=== PATIENT | female | born 2000 | race Caucasian/White ===

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

== ENCOUNTER 2022-02-12 17:04 | Emergency (ER) | payer MEDICAID, OTHER ==
[~2022-02-12] VITALS: Ht 167.6 cm; Wt 118.0 kg
[2022-02-12] MEDS ORDERED: IBUPROFEN 600MG TABLET PO ONE (18:00)
[2022-02-12 18:45] LABS: CLARITY URINE CLOUDY (CLEAR); COLOR URINE DARK YELLOW (YELLOW); KETONES URINE TRACE (NEGATIVE); LEUKOCYTE ESTERASE URINE TRACE (NEGATIVE); NITRITE URINE NEGATIVE (NEGATIVE); OCCULT BLOOD URINE NEGATIVE (NEGATIVE); PH URINE 5.5 (4.5-8.0); PROTEIN URINE TRACE (NEGATIVE); SPECIFIC GRAVITY URINE 1.032 (1.005-1.030)
[2022-02-12 18:54] VITALS: BP 149/95
[2022-02-12] MEDS ORDERED: NITR-87 MT (19:18)
[2022-02-12] MEDS ORDERED: DOXY100T2 MT (19:27)
[2022-02-12] MEDS ORDERED: ALBU6.7H9 INH (19:28)
[2022-02-12] MEDS ORDERED: CEFTRIAXONE SODIUM 500 MG/VIAL IM ONE (19:30)
[2022-02-12] MEDS ORDERED: NITROFURANTOIN 100MG M/M CAPSULE PO ONE (19:30)
== END 2022-02-12 19:45 | disposition home or self-care (01) ==
LOC: ER 17:04
DX: R10.30 Lower abdominal pain, unspecified (principal); J45.909 Unspecified asthma, uncomplicated; Z90.49 Acquired absence of other specified parts of digestive tract
CPT/HCPCS: 76830; 76856; 81003; 81025; 96372; 99284; J0696

== ENCOUNTER 2022-05-10 16:58 | Emergency (ER) | payer MEDICAID, OTHER ==
[~2022-05-10] VITALS: Ht 175.3 cm; Wt 105.0 kg
[~2022-05-10 16:58] MED LIST changes: +ALBU6.7H9 INH; +DOXY100T2 MT
[2022-05-10 17:29] VITALS: BP 172/119
[2022-05-11] MEDS ORDERED: CIPHCO RIGHT EAR (11:34)
[2022-05-11] MEDS ORDERED: IBUP-2029 PO (11:34)
[2022-05-11] MEDS ORDERED: AMOX500T2 PO (11:34)
== END 2022-05-10 20:32 | disposition left against medical advice (07) ==
LOC: ER 16:58
DX: Z53.21 Procedure and treatment not carried out due to patient leaving prior to being seen by health care provider (principal); J45.909 Unspecified asthma, uncomplicated; Z98.890 Other specified postprocedural states

== ENCOUNTER 2022-05-11 09:48 | Emergency (ER) | payer MEDICAID, OTHER ==
[~2022-05-11] VITALS: Ht 167.6 cm; Wt 105.0 kg
[2022-05-11 09:50] VITALS: BP 133/80
[2022-05-11] MEDS ORDERED: IBUPROFEN 600MG TABLET PO STA (11:10)
[2022-05-11] MEDS ORDERED: IBUP-2029 PO (11:34)
[2022-05-11] MEDS ORDERED: AMOX500T2 PO (11:34)
[2022-05-11] MEDS ORDERED: CIPHCO RIGHT EAR (11:34)
== END 2022-05-11 11:44 | disposition home or self-care (01) ==
LOC: ER 09:48
DX: H60.91 Unspecified otitis externa, right ear (principal); H66.91 Otitis media, unspecified, right ear
CPT/HCPCS: 81025; 99283

== ENCOUNTER 2022-05-13 11:20 | Emergency (ER) | payer MEDICAID ==
[~2022-05-13] VITALS: Ht 170.2 cm; Wt 118.0 kg
[~2022-05-13 11:20] MED LIST changes: +AMOX500T2 PO; +CIPHCO RIGHT EAR; +IBUP-2029 PO
[2022-05-13 11:32] VITALS: BP 141/93
== END 2022-05-13 16:46 | disposition left against medical advice (07) ==
LOC: ER 11:54
DX: Z53.21 Procedure and treatment not carried out due to patient leaving prior to being seen by health care provider (principal); J45.909 Unspecified asthma, uncomplicated; Z98.890 Other specified postprocedural states

== ENCOUNTER 2022-05-18 07:50 | Emergency (ER) | payer MEDICAID ==
[~2022-05-18] VITALS: Ht 175.3 cm; Wt 118.0 kg
[2022-05-18 08:00] VITALS: BP 155/99
[2022-05-18] MEDS ORDERED: OFLO5DRO4 EACH EAR (08:29)
== END 2022-05-18 08:53 | disposition home or self-care (01) ==
LOC: ER 07:50
DX: H60.92 Unspecified otitis externa, left ear (principal); J45.909 Unspecified asthma, uncomplicated; Z98.890 Other specified postprocedural states
CPT/HCPCS: 99281

== ENCOUNTER 2023-11-14 11:09 | Emergency (ER) | payer MEDICAID ==
[~2023-11-14] VITALS: Ht 172.7 cm; Wt 104.0 kg
[~2023-11-14 11:09] MED LIST changes: +ALBU6.7H3 INH; -ALBU6.7H9 INH; +OFLO5DRO4 EACH EAR
[2023-11-14 11:15] VITALS: O2SAT 97
[2023-11-14] MEDS: ACETAMINOPHEN 325MG TABLET PO ONE (12:43)
[2023-11-14] MEDS: ONDANSETRON 4MG ODT PO ONE (12:43)
[2023-11-14 13:00] LABS: CLARITY URINE CLEAR (CLEAR); COLOR URINE YELLOW (YELLOW); PH URINE 8.5 (4.5-8.0); PROTEIN URINE NEGATIVE (NEGATIVE); SPECIFIC GRAVITY URINE 1.023 (1.005-1.030)
[2023-11-14 13:01] LABS: GLUCOSE URINE NEGATIVE (NEGATIVE); KETONES URINE 1+ (NEGATIVE); LEUKOCYTE ESTERASE URINE NEGATIVE (NEGATIVE); NITRITE URINE NEGATIVE (NEGATIVE); OCCULT BLOOD URINE NEGATIVE (NEGATIVE)
[2023-11-14] MEDS ORDERED: TOPUD MT (15:07)
[2023-11-14] MEDS ORDERED: IBUP-1525 MT (15:07)
[2023-11-14] MEDS ORDERED: AMOX-494 MT (15:07)
[2023-11-14] MEDS ORDERED: DEXT30SU17 MT (15:07)
[2023-11-14 15:21] VITALS: BP 165/85; PULSE 85; RESP 18; TEMP 98.7
== END 2023-11-14 15:34 | disposition home or self-care (01) ==
LOC: ER 11:09
DX: J02.9 Acute pharyngitis, unspecified (principal); J45.909 Unspecified asthma, uncomplicated; Z90.49 Acquired absence of other specified parts of digestive tract; Z79.899 Other long term (current) drug therapy
CPT/HCPCS: 81003; 81025; 99283; Q0162; Z7610

== ENCOUNTER 2024-01-29 10:44 | Emergency (ER) | payer MEDICAID ==
[~2024-01-29] VITALS: Ht 167.6 cm; Wt 118.0 kg
[~2024-01-29 10:44] MED LIST changes: +AMOX-494 MT; +DEXT30SU17 MT; +IBUP-1525 MT; +TOPUD MT
[2024-01-29 11:24] VITALS: BP 122/86; PULSE 66; RESP 18; TEMP 97.8; O2SAT 98
[2024-01-29 12:01] LABS: BASOPHILS % 0.3 % (0.0-2.0); EOSINOPHILS % 2.3 % (0.0-5.0); HEMATOCRIT. 42.6 % (36.0-48.0); HEMOGLOBIN. 14.8 g/dL (12.0-16.0); LYMPHOCYTES % 27.8 % (20.0-50.0); MEAN CORPUSCULAR HEMOGLOBIN 31.9 pg (28.0-32.0); MEAN CORPUSCULAR HGB CONC 34.8 g/dL (31.0-37.0); MEAN CORPUSCULAR VOLUME 91.5 fL (81.0-99.0); MEAN PLATELET VOLUME 11.6 fl (7.4-10.4); MONOCYTES % 7.5 % (2.0-8.0); NEUTROPHILS % 62.1 % (40.0-76.0); PLATELET 249 x1000/uL (130-400); RED BLOOD CELL COUNT 4.65 mill/uL (4.2-5.4); RED CELL DISTRIBUTION WIDTH 12.7 % (11.6-14.6); WHITE BLOOD COUNT 9.4 x1000/uL (4.5-11.0)
[2024-01-29 12:11] LABS: HCG SCREEN NEGATIVE
== END 2024-01-29 13:40 | disposition left against medical advice (07) ==
LOC: ER 10:44
DX: N93.8 Other specified abnormal uterine and vaginal bleeding (principal); J45.909 Unspecified asthma, uncomplicated; Z90.49 Acquired absence of other specified parts of digestive tract
CPT/HCPCS: 36415; 84703; 85025; 86850; 86900; 99283

== ENCOUNTER → 2024-05-22 | Emergency (ER) | payer MEDICAID, OTHER ==
[~2024-05-22] VITALS: Ht 170.2 cm; Wt 126.0 kg
[2024-05-22 16:04] VITALS: BP 125/71; PULSE 71; RESP 16; O2SAT 99
[2024-05-22 17:40] LABS: BASOPHILS % 0.5 % (0.0-2.0); EOSINOPHILS % 3.4 % (0.0-5.0); HEMATOCRIT. 43.2 % (36.0-48.0); HEMOGLOBIN. 14.4 g/dL (12.0-16.0); LYMPHOCYTES % 28.4 % (20.0-50.0); MEAN CORPUSCULAR HEMOGLOBIN 30.8 pg (28.0-32.0); MEAN CORPUSCULAR HGB CONC 33.3 g/dL (31.0-37.0); MEAN CORPUSCULAR VOLUME 92.6 fL (81.0-99.0); MEAN PLATELET VOLUME 10.6 fl (7.4-10.4); MONOCYTES % 7.2 % (2.0-8.0); NEUTROPHILS % 60.5 % (40.0-76.0); PLATELET 259 x1000/uL (130-400); RED BLOOD CELL COUNT 4.67 mill/uL (4.2-5.4); RED CELL DISTRIBUTION WIDTH 12.8 % (11.6-14.6); WHITE BLOOD COUNT 10.7 x1000/uL (4.5-11.0)
[2024-05-22 17:45] LABS: CHLORIDE 106 mEq/L (98-107); POTASSIUM 3.8 mEq/L (3.5-5.1); SODIUM 139 mEq/L (136-145)
[2024-05-22 17:46] LABS: CARBON DIOXIDE 26 mEq/L (21-32)
[2024-05-22 17:47] LABS: CALCIUM 9.6 mg/dL (8.7-10.4)
[2024-05-22 17:51] LABS: CREATININE 0.7 mg/dL (0.6-1.0); GLUCOSE 88 mg/dL (70-105)
[2024-05-22 17:52] LABS: UREA NITROGEN BLOOD 11 mg/dL (9-23)
[2024-05-22 18:00] LABS: HCG SCREEN NEGATIVE
[2024-05-22 18:07] LABS: TROPONIN I HIGH SENSITIVITY < 4 ng/L (3.0-34)
== END ==
LOC: ER 15:59
DX: R07.89 Other chest pain (principal); J45.909 Unspecified asthma, uncomplicated; Z79.899 Other long term (current) drug therapy
CPT/HCPCS: 36415; 71045; 80048; 84484; 84703; 85025; 93005; 99285

== ENCOUNTER 2024-07-24 14:49 | Emergency (ER) | payer MEDICAID ==
[~2024-07-24] VITALS: Ht 170.2 cm; Wt 109.0 kg
[2024-07-24 14:59] VITALS: BP 117/71; RESP 18; O2SAT 97
[2024-07-24 15:01] VITALS: PULSE 95; O2SAT 97
[2024-07-24 15:28] VITALS: TEMP 98.2
[2024-07-24] MEDS: ACETAMINOPHEN 325MG TABLET PO ONE (15:28)
[2024-07-24] MEDS: BACITRACIN ZINC OINT UDPKT TOP ONE (16:00)
[2024-07-24] MEDS: LIDOCAINE HCL/PF 1% 10 MG/ML 5ML VIAL INFIL ONE (16:01)
== END 2024-07-24 17:24 | disposition home or self-care (01) ==
LOC: ER 15:00
DX: S61.211A Laceration without foreign body of left index finger without damage to nail, initial encounter (principal); J45.909 Unspecified asthma, uncomplicated; Z79.899 Other long term (current) drug therapy; Z90.49 Acquired absence of other specified parts of digestive tract; W26.0XXA Contact with knife, initial encounter; Y93.89 Activity, other specified; Y92.89 Other specified places as the place of occurrence of the external cause; Y99.8 Other external cause status
CPT/HCPCS: 73140; 12001; 99283; J3490; Z7610 ×2

== ENCOUNTER 2024-10-08 13:17 | Emergency (ER) | payer MEDICAID ==
[~2024-10-08] VITALS: Ht 167.6 cm; Wt 108.0 kg
[2024-10-08 13:29] VITALS: O2SAT 96
[2024-10-08 13:31] VITALS: BP 116/70; PULSE 51; RESP 16; TEMP 37.2; O2SAT 100
[2024-10-08] MEDS ORDERED: FLUT9.9S BOTHNSTRLS (15:19)
== END 2024-10-08 15:58 | disposition home or self-care (01) ==
LOC: ER 13:17
DX: J01.90 Acute sinusitis, unspecified (principal); B97.89 Other viral agents as the cause of diseases classified elsewhere; J45.909 Unspecified asthma, uncomplicated; Z79.899 Other long term (current) drug therapy; Z90.49 Acquired absence of other specified parts of digestive tract; Z79.1 Long term (current) use of non-steroidal anti-inflammatories (NSAID); Z91.018 Allergy to other foods
CPT/HCPCS: 99282

== ENCOUNTER 2025-08-23 20:47 | Emergency (ER) | payer MEDICAID ==
[~2025-08-23] VITALS: Ht 167.6 cm; Wt 128.0 kg
[~2025-08-23 20:47] MED LIST changes: +FLUT9.9S BOTHNSTRLS; +IBUP-1455 PO; -IBUP-2029 PO
[2025-08-23 20:54] VITALS: BP 163/117; TEMP 36.6; O2SAT 99
[2025-08-23 20:57] VITALS: PULSE 114; RESP 20; O2SAT 100
== END 2025-08-24 01:08 | disposition left against medical advice (07) ==
LOC: ER 20:47
DX: R51.9 Headache, unspecified (principal); H92.01 Otalgia, right ear
CPT/HCPCS: 99281